=== PATIENT | female | born 1960 | race Caucasian/White ===

== ENCOUNTER 2017-06-01 09:54 | Outpatient (CLI) | payer BC ==
--- NOTE | 2017-06-01 11:11 | XRAY Report ---
TWO-VIEW CHEST: 06/01/2017 CLINICAL INDICATION: Cough. COMPARISON: 10/01/2015 FINDINGS: Frontal and lateral views of the chest demonstrate a normal cardiac silhouette. The lungs are clear. No effusion or pneumothorax is present. IMPRESSION: NORMAL CHEST. TD: 06/01/2017 11:10 MTDD
== END 2017-06-01 09:55 | disposition home or self-care (01) ==
LOC: DI 09:54
PROVIDERS: ATTEND Physician Assistant Medical
DX: R05 Cough (principal); Z00.00 Encounter for general adult medical examination without abnormal findings; R53.83 Other fatigue; Z72.89 Other problems related to lifestyle; Z11.59 Encounter for screening for other viral diseases; Z79.899 Other long term (current) drug therapy
CPT/HCPCS: 71020; 80053; 80061; 82306; 84443; 85025; 86803

== ENCOUNTER 2017-06-01 14:35 | Outpatient (CLI) | payer BC ==
[2017-06-01 13:01] LABS: BASOPHILS % (AUTO) 0.3 %; EOSINOPHILS # (AUTO) 0.2 10^3/uL (0.0-0.7); EOSINOPHILS % (AUTO) 4.6 %; HCT - HEMATOCRIT 40.8 % (37.0-47.0); HGB - HEMOGLOBIN 14.1 g/dL (12.0-16.0); LYMPHOCYTES # (AUTO) 1.4 10^3/uL (1.5-3.5); LYMPHOCYTES % (AUTO) 36.3 %; MEAN CORPUSCULAR HEMOGLOBIN 30.7 pg (27.0-31.0); MEAN CORPUSCULAR HGB CONC 34.5 g/dL (32.0-36.0); MEAN CORPUSCULAR VOLUME 88.9 fL (81.0-99.0); MEAN PLATELET VOLUME 8.4 fL (7.9-10.8); MONOCYTES # (AUTO) 0.3 10^3/uL (0.0-1.0); MONOCYTES % (AUTO) 7.9 %; NEUTROPHILS % (AUTO) 50.9 %; NUCLEATED RED BLOOD CELLS AUTO 0.1 /100WBC; RED BLOOD COUNT 4.59 10^6/uL (4.20-5.40); UNCORRECTED WHITE BLOOD COUNT 3.9 x10^3/uL; WHITE BLOOD COUNT 3.9 x10^3/uL (4.8-10.8)
[2017-06-01 13:19] LABS: ALBUMIN/GLOBULIN RATIO 1.7 (1.0-2.2); BILIRUBIN,TOTAL 1.7 mg/dL (0.2-1.0); BUN - BLOOD UREA NITROGEN 25 mg/dL (6-20); CALCIUM 9.1 mg/dL (8.5-10.3); CARBON DIOXIDE - CO2 26 mmol/L (21-32); CHLORIDE 104 mmol/L (101-111); CHOL/HDL RATIO 3.5 (<4.4); CHOLESTEROL 252 mg/dL; CREATININE 0.7 mg/dL (0.4-1.0); GFR - MDRD 86 (>89); GLUCOSE 102 mg/dL (70-100); HDL CHOLESTEROL 73 mg/dL; LDL/HDL RATIO 2.3 (<4.4); POTASSIUM 3.9 mmol/L (3.5-5.0); SODIUM 136 mmol/L (135-145); TOTAL PROTEIN 7.1 g/dL (6.7-8.2); TRIGLYCERIDES 60 mg/dL; VLDL CHOLESTEROL 12 mg/dL
== END 2017-06-01 14:36 | disposition home or self-care (01) ==
LOC: LAB.R 14:35
PROVIDERS: ATTEND Physician Assistant Medical
DX: Z00.00 Encounter for general adult medical examination without abnormal findings (principal); R53.83 Other fatigue; Z72.89 Other problems related to lifestyle; Z11.59 Encounter for screening for other viral diseases; Z79.899 Other long term (current) drug therapy
CPT/HCPCS: 80053; 80061; 82306; 84443; 85025; 86803

== ENCOUNTER 2017-06-07 10:15 | Outpatient (CLI) | payer BC ==
--- NOTE | 2017-06-09 19:27 | Mammography Report ---
DATE OF SERVICE: 06/07/2017 DIGITAL SCREENING MAMMOGRAM: 06/07/2017 CLINICAL INDICATION: A 57-year-old for screening. COMPARISON: 04/2015, 07/2013, 06/2010. TECHNIQUE: Routine CC and MLO projections, as well as bilateral laterally exaggerated craniocaudal v iews, were obtained of the breasts. FINDINGS: Parenchymal tissue within both breasts is heterogeneously dense, which may lower the sensi tivity of mammography; however, there are no dominant masses, suspicious microcalcifications, or secondary sign s of malignancy. In comparison to the previous studies, there are no significant changes. ASSESSMENT: NO MAMMOGRAPHIC EVIDENCE OF MALIGNANCY. NO SIGNIFICANT INTERVAL CHANGES. RECOMMENDATION: Screening mammography is recommended annually. BIRADS category 1 - Negative. STANDARD QUALIFYING STATEMENTS 1. This examination was reviewed with the aid of Computed Aided Detection (CAD). 2. A negative x-ray report should not delay biopsy if a dominant or clinically suspicious mass is pre sent. More than 5% of cancers are not identified by x-ray. 3. Dense breasts may obscure an underlying neoplasm. TD: 06/08/2017 18:49
== END 2017-06-07 10:16 | disposition home or self-care (01) ==
LOC: DI 10:15
PROVIDERS: ATTEND Physician Assistant Medical
DX: Z12.31 Encounter for screening mammogram for malignant neoplasm of breast (principal)
CPT/HCPCS: 77067

== ENCOUNTER 2017-10-31 12:03 | Outpatient (CLI) | payer BC | END 2017-10-31 12:04 | LOC: LAB.R 12:03 | PROVIDERS: ATTEND Physician Assistant Medical | DX: N30.00 Acute cystitis without hematuria (principal) | CPT/HCPCS: 87077; 87086; 87181 ==

== ENCOUNTER 2017-12-30 08:00 | Outpatient (CLI) | payer BC ==
[2017-12-30 13:02] LABS: BASOPHILS % (AUTO) 0.3 %; EOSINOPHILS # (AUTO) 0.1 10^3/uL (0.0-0.7); EOSINOPHILS % (AUTO) 1.7 %; HGB - HEMOGLOBIN 14.4 g/dL (12.0-16.0); LYMPHOCYTES # (AUTO) 1.2 10^3/uL (1.5-3.5); LYMPHOCYTES % (AUTO) 29.9 %; MEAN CORPUSCULAR HEMOGLOBIN 31.2 pg (27.0-31.0); MEAN CORPUSCULAR HGB CONC 33.9 g/dL (32.0-36.0); MEAN CORPUSCULAR VOLUME 91.9 fL (81.0-99.0); MEAN PLATELET VOLUME 8.7 fL (7.9-10.8); MONOCYTES # (AUTO) 0.3 10^3/uL (0.0-1.0); MONOCYTES % (AUTO) 7.7 %; NEUTROPHILS # (AUTO) 2.3 10^3/uL (1.5-6.6); NEUTROPHILS % (AUTO) 60.4 %; PLT - PLATELET COUNT 230 10^3/uL (130-450); RED BLOOD COUNT 4.63 10^6/uL (4.20-5.40); RED CELL DISTRIBUTION WIDTH 12.8 % (12.0-15.0); WHITE BLOOD COUNT 3.9 x10^3/uL (4.8-10.8)
[2017-12-30 13:16] LABS: ALBUMIN 4.4 g/dL (3.2-5.5); ALBUMIN/GLOBULIN RATIO 1.8 (1.0-2.2); ALKALINE PHOSPHATASE 65 IU/L (42-121); ALT ALANINE AMINOTRANSFERASE 18 IU/L (10-60); AST ASPARTATE AMINOTRANSFERASE 24 IU/L (10-42); BILIRUBIN,TOTAL 1.7 mg/dL (0.2-1.0); BUN - BLOOD UREA NITROGEN 22 mg/dL (6-20); CALCIUM 9.3 mg/dL (8.5-10.3); CARBON DIOXIDE - CO2 28 mmol/L (21-32); CHLORIDE 101 mmol/L (101-111); CREATININE 0.8 mg/dL (0.4-1.0); GFR - MDRD 74 (>89); GLUCOSE 105 mg/dL (70-100); SODIUM 138 mmol/L (135-145); TOTAL PROTEIN 6.9 g/dL (6.7-8.2)
[2017-12-30 13:18] LABS: CRP - C-REACTIVE PROTEIN < 1.0 mg/dL (0-1.0)
== END 2017-12-30 08:01 | disposition home or self-care (01) ==
LOC: LAB.R 08:00
PROVIDERS: ATTEND Physician Assistant Medical
DX: M79.622 Pain in left upper arm (principal); R06.09 Other forms of dyspnea; M25.50 Pain in unspecified joint
CPT/HCPCS: 80053; 84484; 85025; 85651; 86140

== ENCOUNTER 2018-01-19 13:49 | Outpatient (CLI) | payer BC ==
--- NOTE | 2018-01-19 22:22 | CARDIAC PROCEDURE NOTE ---
DATE OF SERVICE: 01/19/2018 Physician: KAUSHAL Antoine PRIMARY CARE PROVIDER: KAUSHAL Carbajal PROCEDURE: Myocardial perfusion treadmill. PROCEDURE SYMPTOMS: Chest pain and dyspnea on exertion. CARDIAC RISK FACTORS: Include age, hyperlipidemia, and former smoker. PREVIOUS CARDIAC PROCEDURES: No previous cardiac procedures. CLINICAL HISTORY: A 57-year-old female without known coronary artery disease. INITIAL RESTING VITAL SIGNS: BP 98/72, heart rate 69, height 61 inches, weight 121 pounds, BMI 22.54 . PROCEDURE AND FINDINGS: The patient's identity and date verified. Consent signed. The patient performed treadmill exercise using a Maged protocol, completing 9 minutes 8 seconds, and completing an estimated workload of 10.3 metabolic equivalents. At peak exercise, Cardiolite radioac tive tracer was injected intravenously. Maximal blood pressure was 160/64 with a heart rate of 143 b eats per minute or 87% of maximum predicted heart rate for age. The blood pressure response to exerc ise was within normal limits. The patient stopped because of tiring and had mild chest pain. The re sting ECG demonstrated normal sinus rhythm with no abnormalities. Maximum ST segment depression was less than 0.5 mm and upsloping. There was no ectopy. FINAL IMPRESSION: 1. Negative stress electrocardiogram for ischemia by electrocardiographic criteria. 2. Positive stress test clinically for angina. 3. No ectopy or arrhythmia. 4. Outperformed predicted time of 7 minutes 25 seconds. TD: 01/19/2018 17:07
--- NOTE | 2018-01-20 10:35 | Nuclear Medicine Report ---
Procedure Date: 01/19/2018 Accession Number: [id number] / [id number] Procedure: NM - Myocardial Perfusion STR/RST CPT Code: FULL RESULT: EXAM: SINGLE-ISOTOPE PHARMACOLOGICAL STRESS TEST WITH REGADENOSON. SINGLE-ISOTOPE AND ONE-DAY REST/STRESS MYOCARDIAL PERFUSION SCANS WITH TOMOGRAPHIC IMAGING, QUANTITATIVE ANALYSIS, WALL MOTION ANALYSIS AND CALCULATION OF EJECTION FRACTION. EXAM DATE: 01/19/2018 03:07 PM. CLINICAL HISTORY: SOB, PAIN IN LFT UPPER ARM. COMPARISON: None. TECHNIQUE: After the intravenous administration of 9.5 mCi of Tc-99m sestamibi, a rest myocardial perfusion scan was done with tomography. Motion correction was applied when appropriate. After an appropriate delay, pharmacological stress was performed with the infusion of 0.4 mg regadenoson per protocol. According to protocol, 41.9 mCi of Tc-99m sestamibi was injected for stress myocardial perfusion scan. Motion correction was applied when appropriate. Gated tomographic images were obtained for wall motion analysis and computation of left ventricular ejection fraction. ECG findings reported separately FINDINGS: There is mildly decreased activity in the distal anteroseptal wall, more pronounced on the rest images, typical pattern for breast attenuation artifact. No convincing fixed or reversible perfusion defects. Computer analysis: Summed stress score 8 Some depressed score 4 Summed difference score 4 Wall motion analysis demonstrates no focal wall motion abnormality. The left ventricular end-diastolic volume is 45 cc. The left ventricular end-systolic volume is 5 cc. The left ventricular ejection fraction is calculated to be 90%. IMPRESSION: 1. No scintigraphic findings to indicate myocardial ischemia. Negative for infarct. 2. Left ventricular ejection fraction of 90%. This is presumably an overestimate. 3. Normal segmental and global wall motion. 4. Normal left ventricular cavity size, no change with stress. 5. Based on computer analysis, mildly abnormal exam with mild ischemia. This is an overestimate based on visual analysis. RADIA
[2018-01-23 17:47] VITALS: BP 114/68
== END 2018-01-19 13:50 | disposition home or self-care (01) ==
LOC: DI 13:49
PROVIDERS: ATTEND Nurse Practitioner Primary Care
DX: M79.622 Pain in left upper arm (principal); R06.09 Other forms of dyspnea; M54.2 Cervicalgia; R68.84 Jaw pain
CPT/HCPCS: 78452; 93017; A9500

== ENCOUNTER 2018-06-07 08:57 | Outpatient (CLI) | payer BC ==
[2018-06-07 09:13] LABS: BASOPHILS % (AUTO) 0.2 %; EOSINOPHILS # (AUTO) 0.1 10^3/uL (0.0-0.7); HGB - HEMOGLOBIN 14.5 g/dL (12.0-16.0); LYMPHOCYTES % (AUTO) 17.5 %; MEAN CORPUSCULAR HEMOGLOBIN 31.2 pg (27.0-31.0); MEAN CORPUSCULAR HGB CONC 34.5 g/dL (32.0-36.0); MEAN CORPUSCULAR VOLUME 90.2 fL (81.0-99.0); MEAN PLATELET VOLUME 7.1 fL (7.9-10.8); MONOCYTES # (AUTO) 0.5 10^3/uL (0.0-1.0); MONOCYTES % (AUTO) 8.2 %; NEUTROPHILS # (AUTO) 4.3 10^3/uL (1.5-6.6); NEUTROPHILS % (AUTO) 73.1 %; PLT - PLATELET COUNT 222 10^3/uL (130-450); RED BLOOD COUNT 4.64 10^6/uL (4.20-5.40); RED CELL DISTRIBUTION WIDTH 12.5 % (12.0-15.0); WHITE BLOOD COUNT 5.9 x10^3/uL (4.8-10.8)
[2018-06-07 09:30] LABS: ALBUMIN 4.4 g/dL (3.2-5.5); ALBUMIN/GLOBULIN RATIO 1.7 (1.0-2.2); ALKALINE PHOSPHATASE 61 IU/L (42-121); ALT ALANINE AMINOTRANSFERASE 19 IU/L (10-60); AST ASPARTATE AMINOTRANSFERASE 25 IU/L (10-42); BILIRUBIN,TOTAL 0.8 mg/dL (0.2-1.0); BUN - BLOOD UREA NITROGEN 18 mg/dL (6-20); CARBON DIOXIDE - CO2 28 mmol/L (21-32); CHLORIDE 99 mmol/L (101-111); CHOLESTEROL 195 mg/dL; CREATININE 0.8 mg/dL (0.4-1.0); GFR - MDRD 74 (>89); GLUCOSE 111 mg/dL (70-100); HDL CHOLESTEROL 66 mg/dL; LDL CHOLESTEROL,CALCULATED 112 mg/dL; LDL/HDL RATIO 1.7 (<4.4); SODIUM 136 mmol/L (135-145); VLDL CHOLESTEROL 17 mg/dL
== END 2018-06-07 08:58 | disposition home or self-care (01) ==
LOC: LAB 08:57
PROVIDERS: ATTEND Physician Assistant Medical
DX: Z00.00 Encounter for general adult medical examination without abnormal findings (principal)
CPT/HCPCS: 36415; 80053; 80061; 83721; 84443; 85025

== ENCOUNTER 2018-10-27 15:56 | Outpatient (CLI) | payer BC ==
--- NOTE | 2018-10-29 07:41 | MRI Report ---
Reason: HEADACHE,ATYPICAL,AUDITORY SYMPTOMS Procedure Date: 10/27/2018 Accession Number: [id number] / [id number] Procedure: MRI - Brain W/O CPT Code: FULL RESULT: EXAM: MRI BRAIN WITHOUT CONTRAST EXAM DATE: 10/27/2018 05:40 PM. CLINICAL HISTORY: Headache, atypical, auditory symptoms. COMPARISON: No prior brain MRI. TECHNIQUE: Multiplanar, multisequence T1-weighted and fluid-sensitive MR sequences of the brain were performed. Sequences optimized for routine evaluation. Other: None. IV Contrast: None. FINDINGS: Brain Volume: Normal for age. Parenchyma/Dura: No mass, acute infarct or hemorrhage. Cerebral white matter contains a few scattered punctate foci of nonspecific T2 hyperintensity. There is also minimal amorphous T2 hyperintensity in the left mora. These are nonspecific signal changes but likely attributable to aging and minimal chronic microangiopathy. No brain swelling or edema. No mass effect, midline shift or abnormal subdural fluid collection. No midline developmental anomaly or Chiari malformation. Ventricles/Cisterns: No hydrocephalus. No abnormal extra-axial fluid collection or hemorrhage. Orbits: Symmetric and unremarkable. Sella Turcica: The pituitary gland, cavernous sinuses, suprasellar cistern and optic chiasm are unremarkable. IAC: Symmetric and unremarkable appearance allowing for the inherent limitations of noncontrast imaging technique. Vasculature: Normal signal flow void is seen in the major arterial structures at the skull base. Sinuses: No acute appearing sinus disease. Bones: No focal pathologic appearing marrow signal changes. Other: None. IMPRESSION: 1.No acute intracranial abnormality. 2. Minimal nonspecific white matter T2 hyperintense signal changes, likely from microangiopathy. 3. If there is additional concern for IAC region pathology, dedicated IAC MRI without contrast or without and with contrast could be considered as clinically warranted. RADIA
== END 2018-10-27 15:57 | disposition home or self-care (01) ==
LOC: DI 15:56
PROVIDERS: ATTEND Family Medicine
DX: R51 Headache (principal); R44.9 Unspecified symptoms and signs involving general sensations and perceptions
CPT/HCPCS: 70551

== ENCOUNTER 2020-03-28 19:49 | Outpatient (CLI) | payer OTHER | END 2020-03-28 19:50 | disposition home or self-care (01) | LOC: COV 19:49 | PROVIDERS: ATTEND Family Medicine | DX: R05 Cough (principal); M79.10 Myalgia, unspecified site; R68.83 Chills (without fever); J02.9 Acute pharyngitis, unspecified; R19.7 Diarrhea, unspecified; R09.81 Nasal congestion; Z20.828 Contact with and (suspected) exposure to other viral communicable diseases ==

== ENCOUNTER 2022-09-23 14:34 | Outpatient (CLI) | payer OTHER ==
--- NOTE | 2022-09-23 15:36 | XRAY Report ---
PROCEDURE: Foot 3 View LT INDICATIONS: PAIN IN LT FOOT TECHNIQUE: 3 views of the foot were acquired. COMPARISON: None. FINDINGS: Bones: No fractures or dislocations. No suspicious bony lesions. Hallux valgus and bunion. Mild first MTP degenerative change. Soft tissues: No suspicious soft tissue calcifications or masses. IMPRESSION: Hallux valgus, bunion, mild first MTP degenerative change. Reviewed by: Christiano Castle MD on 09/23/2022 3:34 PM PDT Approved by: Christiano Castle MD on 09/23/2022 3:34 PM PDT Station ID: [id number]
== END 2022-09-23 14:35 | disposition home or self-care (01) ==
LOC: DI 14:34
PROVIDERS: ATTEND Registered Nurse
DX: M19.072 Primary osteoarthritis, left ankle and foot (principal); M20.12 Hallux valgus (acquired), left foot; M21.612 Bunion of left foot

== ENCOUNTER 2022-09-30 16:45 | Outpatient (CLI) | payer OTHER ==
--- NOTE | 2022-10-01 11:20 | XRAY Report ---
PROCEDURE: Foot 3 View LT INDICATIONS: PAIN IN LEFT FOOT TECHNIQUE: 3 views of the foot were acquired. COMPARISON: 09/23/2022 FINDINGS: Bones: Nondisplaced fifth metatarsal fracture plane coursing transversely across the proximal metaph ysis. No intra-articular extension. No other fractures are seen. There is moderate hallux valgus and bunion deformity of the first digit. There are mild first MTP degenerative changes. Soft tissues: No suspicious soft tissue calcifications or masses. IMPRESSION: 1. Nondisplaced fifth metatarsal base transverse fracture. This is consistent with a Hernandez fracture. 2. Hallux valgus, bunion, and first MTP degeneration. Reviewed by: Anna Live MD on 10/01/2022 11:18 AM PDT Approved by: Anna Live MD on 10/01/2022 11:18 AM PDT Station ID: [id number]
== END 2022-09-30 16:46 | disposition home or self-care (01) ==
LOC: DI 16:45
PROVIDERS: ATTEND Registered Nurse
DX: S92.355A Nondisplaced fracture of fifth metatarsal bone, left foot, initial encounter for closed fracture (principal); M20.12 Hallux valgus (acquired), left foot; M21.612 Bunion of left foot; M19.072 Primary osteoarthritis, left ankle and foot

== ENCOUNTER 2023-04-19 16:06 | Outpatient (CLI) | payer OTHER ==
[2023-04-19 16:52] LABS: BASOPHILS % (AUTO) 0.3 %; EOSINOPHILS # (AUTO) 0.1 10^3/uL (0.0-0.7); EOSINOPHILS % (AUTO) 1.1 %; HCT - HEMATOCRIT 38.3 % (37.0-47.0); LYMPHOCYTES # (AUTO) 1.1 10^3/uL (1.5-3.5); LYMPHOCYTES % (AUTO) 15.2 %; MEAN CORPUSCULAR HEMOGLOBIN 31.4 pg (27.0-31.0); MEAN CORPUSCULAR HGB CONC 33.9 g/dL (32.0-36.0); MEAN CORPUSCULAR VOLUME 92.5 fL (81.0-99.0); MEAN PLATELET VOLUME 9.5 fL (7.9-10.8); MONOCYTES # (AUTO) 0.5 10^3/uL (0.0-1.0); MONOCYTES % (AUTO) 6.9 %; NEUTROPHILS # (AUTO) 5.6 10^3/uL (1.5-6.6); NEUTROPHILS % (AUTO) 76.2 %; PLT - PLATELET COUNT 252 10^3/uL (130-450); RED BLOOD COUNT 4.14 10^6/uL (4.20-5.40); RED CELL DISTRIBUTION WIDTH 12.1 % (12.0-15.0); WHITE BLOOD COUNT 7.4 x10^3/uL (4.8-10.8)
[2023-04-19 17:13] LABS: ALBUMIN 4.7 g/dL (3.2-5.5); ALKALINE PHOSPHATASE 82 IU/L (42-121); ALT ALANINE AMINOTRANSFERASE 14 IU/L (10-60); AST ASPARTATE AMINOTRANSFERASE 18 IU/L (10-42); BILIRUBIN,TOTAL 0.5 mg/dL (0.2-1.0); BUN - BLOOD UREA NITROGEN 31 mg/dL (6-20); CALCIUM 9.7 mg/dL (8.5-10.3); CARBON DIOXIDE - CO2 31 mmol/L (21-32); CHLORIDE 101 mmol/L (101-111); CHOL/HDL RATIO 3.3 (<4.4); CHOLESTEROL 219 mg/dL; GFR - MDRD 56 (>89); GLUCOSE 98 mg/dL (74-104); HDL CHOLESTEROL 67 mg/dL; LDL CHOLESTEROL,CALCULATED 124 mg/dL; LDL/HDL RATIO 1.9 (<4.4); SODIUM 138 mmol/L (135-145); TOTAL PROTEIN 7.1 g/dL (6.4-8.9); TRIGLYCERIDES 140 mg/dL (48-352); VLDL CHOLESTEROL 28 mg/dL
[2023-04-19 17:21] LABS: THYROID STIMULATING HORMONE 1.63 uIU/mL (0.34-5.60)
--- NOTE | 2023-04-20 11:43 | XRAY Report ---
PROCEDURE: Hand 2 View BILAT INDICATIONS: GANGLION CYST OF RIGHT VOLAR WRIST TECHNIQUE: 2 views of the hand(s) acquired. COMPARISON: None. FINDINGS: Bones: No fractures or dislocations. No suspicious bony lesions. Interphalangeal and first CMC david nt space narrowing with osteophytosis. Soft tissues: No suspicious soft tissue calcifications or masses. Radiopaque BB projects along the radial side of the right radial styloid. IMPRESSION: No acute bony abnormality. No radiopaque mass. Interphalangeal and first CMC osteoarthritis. Reviewed by: Anthony Lazar on 04/20/2023 11:42 AM [facility] Approved by: Anthony Lazar on 04/20/2023 11:42 AM [facility] Station ID: [id number]
--- NOTE | 2023-04-20 12:00 | XRAY Report ---
PROCEDURE: Wrist 3 View LT INDICATIONS: CARPEL TUNNEL SYNDROME,LEFT TECHNIQUE: 3 views of the wrist were acquired. COMPARISON: None. FINDINGS: Bones: No fractures or dislocations. No suspicious bony lesions. Soft tissues: No suspicious soft tissue calcifications or masses. IMPRESSION: No acute bony abnormality. Reviewed by: Anthony Lazar on 04/20/2023 11:58 AM [facility] Approved by: Anthony Lazar on 04/20/2023 11:58 AM [facility] Station ID: [id number]
== END 2023-04-19 16:07 | disposition home or self-care (01) ==
LOC: DI 16:06
PROVIDERS: ATTEND Family Medicine
DX: G56.02 Carpal tunnel syndrome, left upper limb (principal); M19.041 Primary osteoarthritis, right hand; M19.042 Primary osteoarthritis, left hand; M18.0 Bilateral primary osteoarthritis of first carpometacarpal joints; G43.909 Migraine, unspecified, not intractable, without status migrainosus; E78.2 Mixed hyperlipidemia
CPT/HCPCS: 36415; 80053; 80061; 83721; 84443; 85025

== ENCOUNTER 2023-08-20 09:56 | Outpatient (CLI) | payer OTHER ==
[2023-08-20 12:08] LABS: INFLUENZA A- RESP PCR PANEL NOT DETECTED; INFLUENZA B - RESP PCR PANEL NOT DETECTED; RSV- RESP PCR PANEL NOT DETECTED; SARS-CoV-2 -RESP PCR PANEL NOT DETECTED
--- NOTE | 2023-08-20 21:19 | XRAY Report ---
PROCEDURE: Chest 2V INDICATIONS: ACUTE COUGH TECHNIQUE: 2 views of the chest were acquired. COMPARISON: None. FINDINGS: Surgical changes and devices: None. Lungs and pleura: No pleural effusions or pneumothorax. Lungs are clear. Mediastinum: Mediastinal contours appear normal. Heart size is normal. Bones and chest wall: No suspicious bony lesions. Overlying soft tissues appear unremarkable. IMPRESSION: No acute cardiopulmonary process. Reviewed by: Manjit Martinez MD on 08/20/2023 9:18 PM PST Approved by: Manjit Martinez MD on 08/20/2023 9:18 PM PST Station ID: [id number]
== END 2023-08-20 09:57 | disposition home or self-care (01) ==
LOC: DI 09:56
PROVIDERS: ATTEND Registered Nurse
DX: R05.1 Acute cough (principal)
CPT/HCPCS: 87637

== ENCOUNTER 2023-09-26 03:48 | Emergency (ER) | payer OTHER ==
[2023-09-26 04:12] VITALS: O2SAT 100
[2023-09-26] MEDS: SODIUM CHLORIDE 0.9% 1,000 ML IV STA (04:25)
[2023-09-26 04:34] LABS: BASOPHILS % (AUTO) 0.5 %; EOSINOPHILS # (AUTO) 0.1 10^3/uL (0.0-0.7); EOSINOPHILS % (AUTO) 3.7 %; HCT - HEMATOCRIT 39.1 % (37.0-47.0); HGB - HEMOGLOBIN 12.6 g/dL (12.0-16.0); LYMPHOCYTES # (AUTO) 1.3 10^3/uL (1.5-3.5); LYMPHOCYTES % (AUTO) 34.9 %; MEAN CORPUSCULAR HEMOGLOBIN 29.9 pg (27.0-31.0); MEAN CORPUSCULAR HGB CONC 32.2 g/dL (32.0-36.0); MEAN CORPUSCULAR VOLUME 92.9 fL (81.0-99.0); MEAN PLATELET VOLUME 9.6 fL (7.9-10.8); MONOCYTES # (AUTO) 0.2 10^3/uL (0.0-1.0); MONOCYTES % (AUTO) 6.3 %; NEUTROPHILS # (AUTO) 2.1 10^3/uL (1.5-6.6); NEUTROPHILS % (AUTO) 54.3 %; PLT - PLATELET COUNT 233 10^3/uL (130-450); RED BLOOD COUNT 4.21 10^6/uL (4.20-5.40); RED CELL DISTRIBUTION WIDTH 12.5 % (12.0-15.0); WHITE BLOOD COUNT 3.8 x10^3/uL (4.8-10.8)
[2023-09-26] MEDS: ONDANSETRON 4 MG/2 ML VIAL IVP STA (04:40)
[2023-09-26 04:49] LABS: ALBUMIN 4.2 g/dL (3.2-5.5); BILIRUBIN,TOTAL 0.4 mg/dL (0.2-1.0); CALCIUM 9.6 mg/dL (8.5-10.3); CREATININE 0.8 mg/dL (0.6-1.3); POTASSIUM 3.6 mmol/L (3.5-4.5); TOTAL PROTEIN 6.3 g/dL (6.4-8.9)
[2023-09-26 05:43] LABS: TROPONIN I HIGH SENSITIVITY 2.8 ng/L (2.3-14.8)
--- NOTE | 2023-09-26 05:48 | ED Physician Documentation ---
History of Present Illness - Stated complaint Stated Complaint: R arm pain - Chief complaint Chief Complaint: Ext Problem - Additonal information Additional information: The patient comes to the emergency department chief complaint of right arm pain. She states that she went to bed feeling fine but that she woke up about 30 minutes prior to coming to the emergency department with a pain in her right arm. She states that is most concentrated in her upper arm over her deltoid area but does reach down into her lower arm and hand. She states it does not go more proximal than her shoulder. The patient states that there is really nothi ng she can do to make it better or worsemovement and position do not make any difference. She denies any abdominal pain or chest pain. She has had some neck pain on the other side, but this has been going on for couple weeks and has been gradually improving it does not involve the right side at all. The patient denies ever having had pain like this before. She denies any numbness or tingling with this. She states that it is just simply a pain. No cardiac history. No history of gallbladder pathology. The patient denies any dyspnea or recent illness. She states she is otherwise fairly healthy. She takes spironolactone for acne and is also on citalopram. No swelling in her legs or calf pain. No other complaints at this time. She does note that she was doing yard work yesterday but did not feel like she had overdone it. PD PAST MEDICAL HISTORY - Past Medical History Past Medical History: Yes Cardiovascular: High cholesterol GI: GERD Psych: Depression, Anxiety Musculoskeletal: Osteoarthritis - Past Surgical History Past Surgical History: Yes General: Appendectomy HEENT: Tonsil/Adenoidectomy - Present Medications Home Medications: Ambulatory Orders Medication Instructions Recorded Confirmed Citalopram Hydrobromide [Celexa] 20 mg PO DAILY 09/26/23 09/26/23 Spironolactone [Aldactone] 100 mg PO DAILY 09/26/23 09/26/23 - Allergies Allergies/Adverse Reactions: Allergies Allergy/AdvReac Type Severity Reaction Status Date / Time No Known Drug Allergies Allergy Verified 09/26/23 04:05 - Social History Does the pt smoke?: No Smoking Status: Never smoker Does the pt drink ETOH?: Yes Does the pt have substance abuse?: No - Immunizations Immunizations are current?: Yes - POLST Patient has POLST: No PD ED PE NORMAL - Vitals Vital signs reviewed: Yes - General General: Alert and oriented X 3, No acute distress, Well developed/nourished - HEENT HEENT: Atraumatic, PERRL, EOMI, Moist mucous membranes - Neck Neck: Supple, no meningeal sign, No bony TTP, Other (No muscular tenderness.) - Cardiac Cardiac: RRR, No murmur - Respiratory Respiratory: No respiratory distress, Clear bilaterally - Abdomen Abdomen: Soft, Non tender, Non distended - Derm Derm: Normal color, Warm and dry, No rash - Extremities Extremities: No deformity, No tenderness to palpate, Normal ROM s pain, No edema, No calf tenderness / cord, Other (Normal arm and shoulder exam on the right.) - Neuro Neuro: Alert and oriented X 3 - Psych Psych: Normal mood, Normal affect Results - Vitals Vitals: Vital Signs - 24 hr 09/26/23 09/26/23 09/26/23 03:50 05:30 06:00 Temperature 36.3 C L Heart Rate 70 74 81 Respiratory 20 18 18 Rate Blood Pressure 103/64 107/74 107/69 O2 Saturation 100 100 100 09/26/23 06:30 Temperature Heart Rate 69 Respiratory 16 Rate Blood Pressure 115/74 O2 Saturation 100 Oxygen O2 Source Room air - EKG (time done) 0413 EKG releavant findings:: EKG personally interpreted by author of this note. Relevant findings are: Rate: Rate (enter#) (68) Rhythm: NSR [place]: Normal Intervals: Normal PA QRS: Normal Ischemia: Non specific changes Compare to prior EKG: Old EKG unavailable Computer interpretation: Agree with computer - Labs Labs: Laboratory Tests 09/26/23 09/26/23 09/26/23 04:20 04:20 06:03 WBC 3.8 L RBC 4.21 Hgb 12.6 Hct 39.1 MCV 92.9 MCH 29.9 MCHC 32.2 RDW 12.5 Plt Count 233 MPV 9.6 Neut # (Auto) 2.1 Lymph # (Auto) 1.3 L [place] # (Auto) 0.2 Eos # (Auto) 0.1 Baso # (Auto) 0.0 Absolute Nucleated RBC 0.00 Nucleated RBC % 0.0 Sodium 141 Potassium 3.6 Chloride 106 Carbon Dioxide 25 Anion Gap 10.0 BUN 22 H Creatinine 0.8 Estimated GFR (MDRD) 72 L Glucose 104 Calcium 9.6 Total Bilirubin 0.4 AST 17 ALT 12 Alkaline Phosphatase 67 Troponin I High Sens 2.8 < 2.3 L Total Protein 6.3 L Albumin 4.2 Globulin 2.1 Albumin/Globulin Ratio 2.0 Lipase 24 PD Medical Decision Making - ED course Complexity details: reviewed results, re-evaluated patient, considered differential, d/w patient ED course: The patient was worked up with labs including CBC, ER abdominal panel, and troponin with repeat at 2 hours. She was also worked up with EKG. Her workup was entirely negative including both troponins and EKG. There is no evidence of right upper quadrant abdominal pathology. I discussed with the patient, who was visibly improved, and that I do not know what has caused her right shoulder and arm pain today. It is possible that it is a nerve compression or some other musculoskeletal pathology although she does not seem to be tender anywhere around there or have any positional change in her level of discomfort. I have considered gallbladder and cardiac sources and workup has been negative for these. We have discussed the need for follow-up with her doctor should her pain become persistent or recurrent for more than the next week. We discussed the usual indications for return. Departure - Departure Disposition: 01 Home, Self Care Clinical Impression: Arm pain, right Condition: Stable Instructions: ED Shoulder Pain [facility] Comments: All of your tests look good today including your both sets of your cardiac enzymes. Your liver enzymes are not elevated and there is no evidence of a serious cause of your symptoms today. I do not know what caused the right arm to suddenly start hurting tonight, though this may be related to the yardwork you did yesterday. If you continue to have arm pain for more than the next week, please follow-up with your doctor to discuss having MRI done. You may take ibuprofen and/or Tylenol for your pain. You may also use ice, heat, stretching, and massage to help with this as well. Forms: PCP List
[2023-09-26 06:55] VITALS: BP 115/74
== END 2023-09-26 07:04 | disposition home or self-care (01) ==
LOC: ED 03:48
DX: M79.601 Pain in right arm (principal); E78.00 Pure hypercholesterolemia, unspecified; Z79.899 Other long term (current) drug therapy
CPT/HCPCS: 36415; 80053; 83690; 84484; 85025; 93005; 99284